=== PATIENT | male | born 1990 | race Caucasian/White ===

== ENCOUNTER 2018-07-13 15:17 | Emergency (ER) | payer BC ==
[2018-07-13 15:44] VITALS: BP 124/84
[2018-07-13] MEDS ORDERED: methylPREDNISolone 125 MG* 2 ML VIAL IV ONE (16:01)
[2018-07-13] MEDS ORDERED: Famotidine TAB* 20 MG PO ONE (16:02)
[2018-07-13] MEDS ORDERED: LoraTADine TAB(NF) 10 MG TAB (AUTOSUB to CETIRIZINE) PO ONE (16:02)
--- NOTE | 2018-07-13 16:21 | UC ---
Skin Complaint HPI - HPI Summary HPI Summary: 27-year-old male presents with hives. States started yesterday around 10 AM. States he took a dose of Benadryl yesterday evening and the hives subsided. States this morning did not notice any lesions. Went to work this afternoon and started developing hives again patient was progressively worsened over the past 4 hours with some swelling of his hands. States he had one other episode years ago that was associated with a change in laundry detergent. Denies swelling of lips, tongue, throat, difficulty breathing, wheezing, changes in diet, soaps, detergents, deodorants, cologne, medications, or known contact with environmental irritants. He works as a health teacher. - History of Current Complaint Chief Complaint: UCSkin Time Seen by Provider: 07/13/18 15:51 Stated Complaint: SWELLING IN HANDS Hx Obtained From: Patient Pain Intensity: 9 - Allergy/Home Medications Allergies/Adverse Reactions: Allergies Allergy/AdvReac Type Severity Reaction Status Date / Time Penicillins Allergy Hives Verified 07/13/18 15:39 Home Medications: Home Medications diphenhydrAMINE HCl [Benadryl Allergy 25 MG CAP] 25 mg PO Q6HR PRN 07/13/18 [ History Confirmed 07/13/18] PMH/Surg Hx/FS Hx/Imm Hx Previously Healthy: Yes - Denies significant PMH - Surgical History Surgical History: Yes Surgery Procedure, Year, and Place: URETHRAL SX. EAR TUBES. TOOTH EXTRACTIONS - Family History Known Family History: Positive: Unknown - Social History Alcohol Use: Weekly Substance Use Type: None Smoking Status (MU): Never Smoked Tobacco - Immunization History Most Recent Influenza Vaccination: has not had Review of Systems All Other Systems Reviewed And Are Negative: Yes Constitutional: Negative: Fever Skin: Positive: Rash - See HPI Eyes: Negative: Drainage, Eye Redness Respiratory: Negative: Shortness Of Breath, Cough Cardiovascular: Negative: Palpitations, Chest Pain Is Patient Immunocompromised?: No Physical Exam - Summary Physical Exam Summary: GENERAL APPEARANCE: Well developed, well nourished, alert and cooperative, and appears to be in no acute distress. EYES: Conjunctiva clear. No discharge. THROAT: Oral cavity and pharynx normal. No inflammation, swelling, exudate, or lesions. Teeth and gingiva in good general condition. Airway patent. NECK: Neck supple, non-tender without lymphadenopathy. CARDIAC: Normal S1 and S2. No S3, S4 or murmurs. Rhythm is regular. There is no peripheral edema, cyanosis or pallor. Extremities are warm and well perfused. Capillary refill is less than 2 seconds. LUNGS: Clear to auscultation and percussion without rales, rhonchi, wheezing or diminished breath sounds. ABDOMEN: Positive bowel sounds. Soft, nondistended, nontender. No guarding or rebound. No masses or hepatosplenomegally. MUSKULOSKELETAL: ROM intact to all extremities. No joint erythema or tenderness. Normal muscular development. Normal gait. SKIN: Pruritic urticaria to face, neck, trunk, and bilateral upper and lower extremities. Triage Information Reviewed: Yes Vital Signs: Initial Vital Signs Temp 98.1 F 07/13/18 15:41 Pulse 71 07/13/18 15:41 Resp 14 07/13/18 15:41 BP 124/84 07/13/18 15:41 Pulse Ox 98 07/13/18 15:41 Vital Signs Reviewed: Yes Re-Evaluation - Re-Evaluation First Eval Re-Evaluation Time: 16:40 Change: Improved - Patient states pruritis much improved. Continues to have diffuse full body uriticaria but fewer lesions and much improved erythema. No respiratory distress or difficulty. Course/Dx - Course Course Of Treatment: 27-year-old male presents with hives. States started yesterday around 10 AM. States he took a dose of Benadryl yesterday evening and the hives subsided. States this morning did not notice any lesions. Went to work this afternoon and started developing hives again patient was progressively worsened over the past 4 hours with some swelling of his hands. States he had one other episode years ago that was associated with a change in laundry detergent. Denies swelling of lips, tongue, throat, difficulty breathing , wheezing, changes in diet, soaps, detergents, deodorants, cologne, medications , or known contact with environmental irritants. Afebrile. VSS. Airway intact. Exam revealed diffuse full body uricaria. Patient was given methylprednisolone 125 mg IV, famotidine 40 mg PO, and loratadine 10 mg PO with improvement in symptoms. He is to continue prednisone 50 mg daily for next 4 days, famotidine 40 mg daily for next 7 days, and loratidine 10 mg for next 7 days. He is to follow up here or with PCP in 3 days if symptoms do not improve. Warning symptoms requiring evaluation in the ED were reviewed. Patient verbalized understanding and agrees with POC. - Differential Diagnoses - Skin Complaint Differential Diagnoses: Allergic Reaction, Anaphylaxis, Contact Dermatitis, Medication; Adverse Reaction, Urticaria - Diagnoses Provider Diagnosis: Urticaria Discharge - Sign-Out/Discharge Documenting (check all that apply): Patient Departure All imaging exams completed and their final reports reviewed: No Studies - Discharge Plan Condition: Stable Disposition: HOME Prescriptions: Famotidine 40 mg PO DAILY #7 tab Loratadine 10 mg PO DAILY #7 tablet predniSONE TAB* [Deltasone TAB*] 50 mg PO DAILY #4 tab Patient Education Materials: Urticaria (ED) Referrals: No Primary Care Phys,NOPCP [Primary Care Provider] - [facility] [Outside] Additional Instructions: You were given a steroid called methylprednisolone and two non-drowsy antihistamines called loratadine and famotidine in the clinic with improvement in your hives. Starting tomorrow take prednisone 50 mg daily for next 4 days. Take loratidine (Claritin) 10 mg daily for 7 days and fomotidine (Pepcid) 40 mg daily for next 7 days. Return here or follow up with primary care in 3-5 days if symptoms do not improve. I have provided you with the number for the [facility] if you need assistance with establishing with a primary care provider. Seek immediate medical attention in the emergency room if you have worsening of rash, you develop swelling of the lips, tongue, or throat, have difficulty swallowing, difficulty breathing, or any worsening of symptoms. - Billing Disposition and Condition Condition: STABLE Disposition: Home
== END 2018-07-13 16:53 | disposition home or self-care (01) ==
LOC: UCCORT 15:17
DX: L50.9 Urticaria, unspecified (principal); Z88.0 Allergy status to penicillin
CPT/HCPCS: 96374; 99213; A9270-GY; G0463; J2930

== ENCOUNTER 2018-11-05 14:41 | Emergency (ER) | payer BC ==
[2018-11-05 15:21] VITALS: BP 121/52
--- NOTE | 2018-11-05 16:00 | UC ---
Respiratory Complaint HPI - HPI Summary HPI Summary: 28-year-old male presents with 4 week history of nasal congestion, postnasal drip, sore throat, and productive cough. States cough is progressively gotten worse over the last week. Denies fever, chills, ear pain, dysphagia, chest pain , shortness of breath, abdominal pain, nausea, vomiting, or diarrhea. - History of Current Complaint Chief Complaint: UCRespiratory Stated Complaint: COUGH,CONGESTION Time Seen by Provider: 11/05/18 15:31 Hx Obtained From: Patient Pain Intensity: 0 - Allergies/Home Medications Allergies/Adverse Reactions: Allergies Allergy/AdvReac Type Severity Reaction Status Date / Time Penicillins Allergy Hives Verified 11/05/18 15:15 Home Medications: Home Medications Triamcinolone NASAL SPRAY* [Nasacort AQ Nasal [place]*] 2 puff NASAL DAILY [History Confirmed 11/05/18] guaiFENesin ER TAB [Mucinex*] 600 mg PO BID PRN 11/05/18 [History Confirmed 06/15] PMH/Surg Hx/FS Hx/Imm Hx Previously Healthy: Yes - Denies significant PMH - Surgical History Surgical History: Yes Surgery Procedure, Year, and Place: URETHRAL SX. EAR TUBES. TOOTH EXTRACTIONS - Family History Known Family History: Positive: Unknown - Social History Occupation: Employed Full-time Lives: Alone Alcohol Use: Occasionally Substance Use Type: None Smoking Status (MU): Never Smoked Tobacco - Immunization History Most Recent Influenza Vaccination: has not had Review of Systems All Other Systems Reviewed And Are Negative: Yes Constitutional: Negative: Fever, Chills Eyes: Negative: Drainage, Eye Redness ENT: Positive: Sore Throat, Nasal Discharge, Sinus Congestion. Negative: Ear Ache, Sinus Pain/Tenderness Respiratory: Positive: Cough. Negative: Shortness Of Breath Cardiovascular: Negative: Palpitations, Chest Pain Gastrointestinal: Positive: Negative Genitourinary: Positive: Negative Musculoskeletal: Positive: Negative Neurological: Positive: Negative Is Patient Immunocompromised?: No Physical Exam - Summary Physical Exam Summary: GENERAL APPEARANCE: Well developed, well nourished, alert and cooperative, and appears to be in no acute distress. EYES: Conjunctiva clear. No drainage. EARS: External auditory canals and tympanic membranes clear, hearing grossly intact. NOSE: Moderate nasal congestion. THROAT: Mild pharyngeal erythema with post-nasal drip. No tonsilar inflammation , swelling, exudate, or lesions. Uvula midline. Oral cavity normal. Teeth and gingiva in good general condition. NECK: Neck supple, non-tender without lymphadenopathy. CARDIAC: Normal S1 and S2. No S3, S4 or murmurs. Rhythm is regular. There is no peripheral edema, cyanosis or pallor. Extremities are warm and well perfused. Capillary refill is less than 2 seconds. Peripheral pulses intact. LUNGS: Clear to auscultation without rales, rhonchi, wheezing or diminished breath sounds. Loose non-productive cough. ABDOMEN: Positive bowel sounds. Soft, nondistended, nontender. No guarding or rebound. No masses or hepatosplenomegally. MUSKULOSKELETAL: ROM intact to all extremities. No joint erythema or tenderness. Normal muscular development. Normal gait. SKIN: Skin normal color, texture and turgor with no lesions or eruptions. Triage Information Reviewed: Yes Vital Signs: Initial Vital Signs Temp 98.9 F 11/05/18 15:17 Pulse 84 11/05/18 15:17 Resp 17 11/05/18 15:17 BP 121/52 11/05/18 15:17 Pulse Ox 99 11/05/18 15:17 Vital Signs Reviewed: Yes Respiratory Course/Dx - Course Course Of Treatment: 28-year-old male presents with 4 week history of nasal congestion, postnasal drip, sore throat, and productive cough. States cough is progressively gotten worse over the last week. Denies fever, chills, ear pain, dysphagia, chest pain , shortness of breath, abdominal pain, nausea, vomiting, or diarrhea. Afebrile. Vital signs stable. Exam was remarkable for moderate nasal congestion, mild pharyngeal erythema with postnasal drip, clear better breath sounds, and a loose nonproductive cough. Considering the duration of his symptoms will treat him with a course of azithromycin as well as recommend symptomatic treatment including Tessalon Perles one capsule every 8 hours as needed for cough. He is to return here or follow-up with primary care provider in one week if symptoms do not improve. Anticipatory guidance and warning symptoms reviewed with the patient. Verbalizes understanding and agrees with plan of care. - Differential Dx/Diagnosis Differential Diagnosis/HQI/PQRI: Bronchitis, Lower Resp Infection, Sinusitis Provider Diagnosis: URI with cough and congestion Discharge - Sign-Out/Discharge Documenting (check all that apply): Patient Departure All imaging exams completed and their final reports reviewed: No Studies - Discharge Plan Condition: Stable Disposition: HOME Prescriptions: Azithromyxin VALERIE (NF) [Z-Valerie (Zithromax) 250 mg tabs #6] 2 tab PO .TODAY, THEN 1 DAILY #6 tab Benzonatate CAP* [Tessalon 100 MG CAP*] 100 mg PO TID PRN #30 cap PRN Reason: Cough Patient Education Materials: Upper Respiratory Infection (ED) Referrals: No Primary Care Phys,NOPCP [Primary Care Provider] - Additional Instructions: Your history and exam are consistent with an upper respiratory infection. Considering the duration of your symptoms we will treat you with an antibiotic. Start azithromycin 2 tabs today then 1 tab a day for next 4 days. Use a saline rinse kit such as Neti Pot or NeilMed at least twice a day to help thin secretions and promote drainage of the sinuses. Continue to use your Nasocort nasal spray 2 sprays each nostril once daily. I'd recommend using an over the counter decongestant such as Sudafed for the nasal congestion. Use Tessalon Perles 1 cap every 8 hours as needed for cough. Take over the counter acetaminophen (Tylenol) or ibuprofen (Advil, Motrin) according to directions as needed for pain or fever. Use salt water gargles several times a day if you have a sore throat. You may also use Chloraseptic spray or Cepacol lonzenges according to directions which contain a numbing medication and can provide some temporary relief from your sore throat. Return here or follow up with your primary care provider in 7 days if symptoms persist. Seek immediate medical attention in the emergency room if you have fever greater than 100.5 F despite taking acetaminophen or ibuprofen, have chest pain , difficulty breathing, are unable to swallow, or have any worsening of symptoms. - Billing Disposition and Condition Condition: STABLE Disposition: Home
== END 2018-11-05 16:16 | disposition home or self-care (01) ==
LOC: UCCORT 14:41
DX: J06.9 Acute upper respiratory infection, unspecified (principal); R05 Cough; R09.81 Nasal congestion; Z88.0 Allergy status to penicillin
CPT/HCPCS: 99212; G0463

== ENCOUNTER 2019-07-05 19:52 | Emergency (ER) | payer BC ==
[2019-07-05 20:01] VITALS: BP 130/84
[2019-07-05] MEDS ORDERED: Famotidine TAB* 20 MG PO ONE (20:09)
[2019-07-05] MEDS ORDERED: predniSONE TAB* 20 MG PO ONE (20:09)
--- NOTE | 2019-07-05 20:14 | ED ---
Skin Complaint - HPI Summary HPI Summary: 28 yr old onset of hives and itching on the legs and trunk about 1.5 hours ago. he is not sure what he is allergic to. he was playing volleyball. No stridor , no drooling, no lip swelling, no sob. he has had hives before. - History of Current Complaint Chief Complaint: UCSkin Time Seen by Provider: 07/05/19 19:58 Stated Complaint: HIVES, POSS ALLERGIC REACTION Pain Intensity: 0 - Allergy/Home Medications Allergies/Adverse Reactions: Allergies Allergy/AdvReac Type Severity Reaction Status Date / Time Penicillins Allergy Hives Verified 07/05/19 20:02 Home Medications: Home Medications Cromolyn Sodium [Nasalcrom] 13 ml NS DAILY 07/05/19 [History Confirmed 07/05/19] PMH/Surg Hx/FS Hx/Imm Hx Endocrine/Hematology History: Denies: Hx Diabetes, Hx Thyroid Disease Cardiovascular History: Denies: Hx Hypertension Respiratory History: Denies: Hx Asthma - Surgical History Surgery Procedure, Year, and Place: URETHRAL SX. EAR TUBES. TOOTH EXTRACTIONS Infectious Disease History: No Infectious Disease History: Denies: Traveled Outside the [place] in Last 30 Days - Family History Known Family History: Positive: Unknown - Social History Alcohol Use: Occasionally Substance Use Type: Reports: None Smoking Status (MU): Never Smoked Tobacco Review of Systems Constitutional: Negative Positive: Rash All Other Systems Reviewed And Are Negative: Yes Physical Exam Triage Information Reviewed: Yes Vital Signs On Initial Exam: Initial Vitals Temp Pulse Resp BP Pulse Ox 98.8 F 86 16 130/84 100 07/05/19 19:59 07/05/19 19:59 07/05/19 19:59 07/05/19 19:59 07/05/19 19:59 Vital Signs Reviewed: Yes Appearance: Positive: Well-Appearing, No Pain Distress Skin: Positive: Other - urticaria on the lower extremities and trunk. Head/Face: Positive: Normal Head/Face Inspection Eyes: Positive: EOMI ENT: Positive: Normal ENT inspection, Pharynx normal, TMs normal. Negative: Muffled voice, Uvula midline Neck: Positive: Nontender Respiratory/Lung Sounds: Positive: Clear to Auscultation, Breath Sounds Present Cardiovascular: Positive: RRR. Negative: Murmur Abdomen Description: Negative: Distended Musculoskeletal: Positive: Strength/ROM Intact Neurological: Positive: Sensory/Motor Intact, Alert, Oriented to Person Place, Time, CN Intact II-III, Normal Gait, Speech Normal Diagnostics - Vital Signs Vital Signs Temp Pulse Resp BP Pulse Ox 07/05/19 19:59 98.8 F 86 16 130/84 100 - Laboratory Lab Statement: Any lab studies that have been ordered have been reviewed, and results considered in the medical decision making process. Course/Dx - Course Course Of Treatment: 28 yr old with urticaria. DC home. Prednisone, and benadryl to [employer] at drug store on his way home. - Diagnoses Provider Diagnoses: Urticaria Discharge ED - Sign-Out/Discharge Documenting (check all that apply): Patient Departure All imaging exams completed and their final reports reviewed: No Studies - Discharge Plan Condition: Good Disposition: HOME Prescriptions: predniSONE TAB* [Deltasone 20 MG TAB*] 40 mg PO DAILY #8 tab Patient Education Materials: Urticaria (ED) Referrals: [facility] [place] [facility] [Outside] No Primary Care Phys,NOPCP [Primary Care Provider] - Additional Instructions: [employer] benadryl at the drug store on your way home and take it every six hours ; 25-50 mg for the next two days. - Billing Disposition and Condition Condition: GOOD Disposition: Home
== END 2019-07-05 20:19 | disposition home or self-care (01) ==
LOC: UCCORT 19:52
DX: L50.9 Urticaria, unspecified (principal); Z88.0 Allergy status to penicillin
CPT/HCPCS: 99212; A9270-GY; G0463; J7512

== ENCOUNTER 2019-09-07 21:08 | Emergency (ER) | payer BC ==
[2019-09-07 21:23] VITALS: BP 126/81
[2019-09-07 21:25] LABS: Influenza B Molecular POSITIVE (Negative)
[2019-09-07] MEDS ORDERED: Oseltamivir CAP* 75 MG CAP PO ONE (21:27)
--- NOTE | 2019-09-07 21:27 | UC ---
FLU HPI - HPI Summary HPI Summary: 28 yo male presents with flu-like symptoms. He tells me that for the past 3 weeks he has had sinus congestion pain and pressure. Has been taking mucinex and has been "keeping it at bay". Over the last 3 days has had a dry cough and fatigue with increased sinus pressure. Denies fever, chills, sore throat, SOB, abdominal pain, n/v/d. Did not get a flu shot this year - History of Current Complaint Chief Complaint: UCRespiratory Stated Complaint: COUGH,CONGESTION Time Seen by Provider: 09/07/19 21:27 Hx Obtained From: Patient Onset/Duration: Gradual Onset Severity Currently: Mild Severity Initially: Mild Pain Intensity: 3 Pain Scale Used: 0-10 Numeric - Allergy/Home Medications Allergies/Adverse Reactions: Allergies Allergy/AdvReac Type Severity Reaction Status Date / Time Penicillins Allergy Hives Verified 07/05/19 20:02 seasonal Allergy Congestion Uncoded 09/07/19 21:24 Home Medications: Home Medications Diphenhydram/PE/Dm/Acetamin/GG [Mucinex Fast-Max Day-Nite Cold] 2 each PO SEE INSTRUCTIONS 09/07/19 [History Confirmed 09/07/19] PMH/Surg Hx/FS Hx/Imm Hx - Additional Past Medical History Additional PMH: None - Surgical History Surgical History: Yes Surgery Procedure, Year, and Place: URETHRAL SX. EAR TUBES. TOOTH EXTRACTIONS - Family History Known Family History: Positive: Unknown - Social History Occupation: Employed Full-time Lives: With Family Alcohol Use: Occasionally Substance Use Type: None Smoking Status (MU): Never Smoked Tobacco - Immunization History Most Recent Influenza Vaccination: has not had Review of Systems All Other Systems Reviewed And Are Negative: No Constitutional: Positive: Fatigue Skin: Positive: Negative Eyes: Positive: Negative ENT: Positive: Nasal Discharge, Sinus Congestion, Sinus Pain/Tenderness Respiratory: Positive: Cough Cardiovascular: Positive: Negative Gastrointestinal: Positive: Negative Musculoskeletal: Positive: Negative Neurological/Mental Status: Positive: Negative Psychological: Positive: Negative Physical Exam - Summary Physical Exam Summary: GENERAL: NAD. WDWN. No pain distress. SKIN: No rashes, sores, lesions, or open wounds. HEENT: Head: AT/NC Eyes: EOM intact. Conjunctiva clear without inflammation or discharge. Ears: Hearing grossly normal. TMs intact, no bulging, erythema, or edema. Nose: Nasal mucosa mildly swollen and erythematous with yellow/ clear discharge. TTP maxillary and frontal sinus. Positive post nasal drip Throat: Posterior oropharynx without exudates, erythema, or tonsillar enlargement. Uvula midline. NECK: Supple. Nontender. No lymphadenopathy. CHEST: CTAB. No r/r/w. No accessory muscle use. Breathing comfortably and in no distress. CV: RRR. Pulses intact. NEURO: Alert. PSYCH: Age appropriate behavior. Triage Information Reviewed: Yes Vital Signs: Initial Vital Signs Temp 99.4 F 09/07/19 21:19 Pulse 99 09/07/19 21:19 Resp 18 09/07/19 21:19 BP 126/81 09/07/19 21:19 Pulse Ox 97 09/07/19 21:19 Laboratory Tests 09/07/19 21:22 Influenza B (Rapid) Positive H Vital Signs Reviewed: Yes Flu Course/Dx - Course Course Of Treatment: POC flu positive. Flu symptoms seem to have started 3 days ago, therefore rx for tamiflu. He could have an underlying sinus infection given his weeks of sinus symptoms - will rx for zpak to take if symptoms do not improve with tamiflu after 5-7 days - Differential Dx/Diagnosis Provider Diagnosis: Influenza Discharge ED - Sign-Out/Discharge Documenting (check all that apply): Patient Departure All imaging exams completed and their final reports reviewed: No Studies - Discharge Plan Condition: Stable Disposition: HOME Prescriptions: Azithromycin TAB* [Zithromax TAB (Z-VALERIE) 250 mg #6 tabs] 2 tab PO .TODAY, THEN 1 DAILY #1 valerie Benzonatate CAP* [Tessalon 100 MG CAP*] 100 mg PO TID PRN #21 cap PRN Reason: Cough Oseltamivir CAP* [Tamiflu CAP*] 75 mg PO BID #10 cap Patient Education Materials: Influenza (ED) Referrals: No Primary Care Phys,NOPCP [Primary Care Provider] - Additional Instructions: Most people with the flu recover within one to two weeks without treatment. However, serious complications of the flu can occur. Go to the ER immediately if you: -- You feel short of breath or have trouble breathing -- You have pain or pressure in your chest or stomach -- You have signs of being dehydrated, such as dizziness when standing or not passing urine -- You feel confused -- You cannot stop vomiting or you cannot drink enough fluids There are several groups of people who are at increased risk for flu complications. These include women, young children (<5 years of age and especially <2 years of age), people older than 65 years of age, and people with certain diseases such as chronic lung disease (such as asthma), heart disease, diabetes, immunosuppressing conditions (such as HIV infection or transplantation), and some other diseases. Treat symptoms Treating the symptoms of influenza can help you to feel better but will not make the flu go away faster. -- Rest until the flu is fully resolved, especially if the illness has been severe. -- Fluids Drink enough fluids so that you do not become dehydrated. One way to director of strategic sourcing if you are drinking enough is to look at the color of your urine. Normally, urine should be light yellow to nearly colorless. If you are drinking enough, you should pass urine every three to five hours. -- Acetaminophen (sample brand name: Tylenol) can relieve fever, headache, and muscle aches. Aspirin and medicines that include aspirin (eg, bismuth subsalicylate [sample brand name: Pepto-Bismol]) are not recommended for children under 18 because aspirin can lead to a serious disease called Alvaro syndrome. -- Cough medicines are not usually helpful; cough usually resolves without treatment. We do not recommend cough or cold medicine for children under age 6 years. - Billing Disposition and Condition Condition: STABLE Disposition: Home
== END 2019-09-07 21:40 | disposition home or self-care (01) ==
LOC: UCCORT 21:08
DX: J11.1 Influenza due to unidentified influenza virus with other respiratory manifestations (principal); Z88.0 Allergy status to penicillin; Z91.09 Other allergy status, other than to drugs and biological substances
CPT/HCPCS: 99212; A9270-GY; G0463

== ENCOUNTER 2019-10-06 12:21 | Emergency (ER) | payer BC ==
[2019-10-06 13:07] VITALS: BP 127/89
[2019-10-06 14:40] LABS: Influenza A Molecular Negative (Negative); Influenza B Molecular Negative (Negative)
--- NOTE | 2019-10-06 15:52 | UC ---
Respiratory Complaint HPI - HPI Summary HPI Summary: Pt presents with c/o cough that began ~ 1 month prior. Pt was diagnosed with flu ~ 1 month ago. - History of Current Complaint Chief Complaint: UCRespiratory Stated Complaint: POSS FLU Time Seen by Provider: 10/06/19 14:18 Hx Obtained From: Patient Onset/Duration: Gradual Onset, Lasting Weeks Severity Initially: Mild Severity Currently: Mild Pain Intensity: 2 Pain Scale Used: 0-10 Numeric Character: Cough: Nonproductive Aggravating Factors: Deep Breaths, Other - upon waking Associated Signs And Symptoms: Positive: Negative - Risk Factors Pulmonary Embolism Risk Factors: Negative Cardiac Risk Factors: Negative Pseudomonas Risk Factors: Negative Tuberculosis Risk Factors: Negative - Allergies/Home Medications Allergies/Adverse Reactions: Allergies Allergy/AdvReac Type Severity Reaction Status Date / Time Penicillins Allergy Hives Verified 10/06/19 13:02 seasonal Allergy Congestion Uncoded 10/06/19 13:02 Home Medications: Home Medications Oxymetazoline 0.05% NASAL SPR* [Afrin 0.05% NASAL SPRAY*] 1 spray NASAL Q12H 3 Days #1 btl 10/06/19 [Rx] predniSONE 10 mg TAB [Deltasone 10 MG TAB*] 30 mg PO DAILY #12 tab 10/06/19 [Rx] PMH/Surg Hx/FS Hx/Imm Hx Previously Healthy: Yes - Surgical History Surgical History: Yes Surgery Procedure, Year, and Place: URETHRAL SX. EAR TUBES. TOOTH EXTRACTIONS - Family History Known Family History: Positive: Unknown - Social History Occupation: Employed Full-time Lives: With Family Alcohol Use: Occasionally Substance Use Type: None Smoking Status (MU): Never Smoked Tobacco Have You Smoked in the Last Year: No - Immunization History Most Recent Influenza Vaccination: has not had Vaccination Up to Date: Yes Review of Systems All Other Systems Reviewed And Are Negative: Yes Constitutional: Positive: Negative Skin: Positive: Negative Eyes: Positive: Negative ENT: Positive: Negative Respiratory: Positive: Cough Cardiovascular: Positive: Negative Gastrointestinal: Positive: Negative Genitourinary: Positive: Negative Motor: Positive: Negative Neurovascular: Positive: Negative Musculoskeletal: Positive: Negative Neurological/Mental Status: Positive: Negative Psychological: Positive: Negative Is Patient Immunocompromised?: No Physical Exam Triage Information Reviewed: Yes Appearance: Well-Appearing Vital Signs: Initial Vital Signs Temp 98 F 10/06/19 13:02 Pulse 77 10/06/19 13:02 Resp 15 10/06/19 13:02 BP 127/89 10/06/19 13:02 Pulse Ox 100 10/06/19 13:02 Vital Signs Reviewed: Yes Eye Exam: Normal ENT Exam: Normal Dental Exam: Normal Neck exam: Normal Respiratory Exam: Normal Cardiovascular Exam: Normal Musculoskeletal Exam: Normal Neurological Exam: Normal Psychological Exam: Normal Skin Exam: Normal Respiratory Course/Dx - Differential Dx/Diagnosis Differential Diagnosis/HQI/PQRI: Bronchitis, Influenza Provider Diagnosis: Post-viral cough syndrome Discharge ED - Sign-Out/Discharge Documenting (check all that apply): Patient Departure All imaging exams completed and their final reports reviewed: No Studies - Discharge Plan Condition: Stable Disposition: HOME Prescriptions: Oxymetazoline 0.05% NASAL SPR* [Afrin 0.05% NASAL SPRAY*] 1 spray NASAL Q12H 3 Days #1 btl predniSONE 10 mg TAB [Deltasone 10 MG TAB*] 30 mg PO DAILY #12 tab Patient Education Materials: Acute Cough (ED) Referrals: [facility] [place] [place] [facility] [Outside] - If Needed No Primary Care Phys,NOPCP [Primary Care Provider] - - Billing Disposition and Condition Condition: STABLE Disposition: Home
== END 2019-10-06 15:04 | disposition home or self-care (01) ==
LOC: UCCORT 12:21
DX: R05 Cough (principal); Z88.0 Allergy status to penicillin; Z91.09 Other allergy status, other than to drugs and biological substances
CPT/HCPCS: 99212; G0463